=== PATIENT | male | born 1965 | race Hispanic/Latino ===

== ENCOUNTER 2017-03-10 20:04 | Emergency (ER) | payer SELFPAY ==
[2017-03-10 20:52] VITALS: RESP 20; TEMP 99.4; BMI 29.5
--- NOTE | 2017-03-10 21:01 | ED PDOC ---
Arrival/HPI - General Chief Complaint: Substance Abuse Time Seen by Provider: 03/10/17 20:19 Historian: Patient - History of Present Illness Narrative History of Present Illness (Text): 03/10/17 21:01 Freedom Pandey is a 52 year old male, whose past medical history includes substance abuse, IVDA, and hepatitis C, who presents to the emergency department for substance abuse. 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 Patient states he has a history of recreational drug use and reports he feels completely fine. Patient denies any heroine use today. The patient denies any fever, chills, chest pain, shortness of breath, abdominal pain, nausea, vomiting, diarrhea, urinary symptoms, back pain, neck pain, headache, dizziness, or any other complaints. Time/Duration: Prior to Arrival Activities at Onset: Rest, Light Modifying Factors (Text): none Context: Walking, Street Associated Symptoms (Text): none Past Medical History - Provider Review Nursing Documentation Reviewed: Yes - Infectious Disease Hx of Infectious Diseases: None - Cardiac Hx Hypertension: No - Pulmonary Hx Respiratory Disorders: No Hx Tuberculosis: No - Neurological Hx Seizures: No - HEENT Hx HEENT Disorder: No - Renal Hx Renal Disorder: No - Endocrine/Metabolic Hx Endocrine Disorders: No - Hematological/Oncological Hx Blood Disorders: No - Integumentary Hx Dermatological Disorder: No Other/Comment: left arm with dressing red streak noted and warm to touch swollwn and elevated on pillow. Abcess of left arm eight years ago - Musculoskeletal/Rheumatological Hx Musculoskeletal Disorders: No Hx Falls: No - Gastrointestinal Hx Gastrointestinal Disorders: No - Genitourinary/Gynecological Hx Sexually Transmitted Diseases: No - Psychiatric Hx Depression: Yes Hx Substance Use: Yes (cocaine, heroin) - Anesthesia Hx Anesthesia: No Hx Anesthesia Reactions: No Hx Malignant Hyperthermia: No Family/Social History - Physician Review Nursing Documentation Reviewed: Yes Family/Social History: No Known Family HX Smoking Status: Heavy Smoker > 10 Cigarettes Daily Hx Alcohol Use: Yes Frequency of alcohol use: Socially Hx Substance Use: Yes (cocaine, heroin) Allergies/Home Meds Allergies/Adverse Reactions: Allergies lactose Allergy (Verified 08/22/16 10:17) Home Medications: Home Meds Medication Instructions Recorded Confirmed No Known Home Med 03/10/17 03/10/17 Review of Systems - Physician Review All systems were reviewed & negative as marked: Yes - Review of Systems Constitutional: Normal. absent: Fevers Eyes: Normal ENT: Normal Respiratory: Normal. absent: SOB, Cough Cardiovascular: Normal. absent: Chest Pain Gastrointestinal: Normal. absent: Abdominal Pain, Diarrhea, Nausea, Vomiting Genitourinary Male: Normal. absent: Dysuria, Frequency, Hematuria, Urinary Output Changes Musculoskeletal: Normal. absent: Back Pain, Neck Pain Skin: Normal. absent: Rash Neurological: Normal. absent: Headache, Dizziness Endocrine: Normal Hemo/Lymphatic: Normal Psychiatric: Normal. absent: Depression Physical Exam Vital Signs Reviewed: Yes Vital Signs Temp Pulse Resp BP Pulse Ox 03/10/17 21:27 97 H 20 129/76 97 03/10/17 20:08 99.4 F 104 H 20 130/79 91 L Temperature: Afebrile Blood Pressure: Normal Pulse: Regular Respiratory Rate: Normal Appearance: Positive for: Well-Appearing, Non-Toxic, Comfortable Pain Distress: None Mental Status: Positive for: Alert and Oriented X 3 - Systems Exam Head: Present: Atraumatic, Normocephalic Pupils: Present: PERRL Extroacular Muscles: Present: EOMI Conjunctiva: Present: Normal Mouth: Present: Moist Mucous Membranes Neck: Present: Normal Range of Motion Respiratory/Chest: Present: Clear to Auscultation, Good Air Exchange. No: Respiratory Distress, Accessory Muscle Use Cardiovascular: Present: Regular Rate and Rhythm, Normal S1, S2. No: Murmurs Abdomen: Present: Normal Bowel Sounds. No: Tenderness, Distention, Peritoneal Signs Back: Present: Normal Inspection Upper Extremity: Present: Normal Inspection. No: Cyanosis, Edema Lower Extremity: Present: Normal Inspection. No: Edema Neurological: Present: GCS=15, CN II-XII Intact, Speech Normal Skin: Present: Warm, Dry, Normal Color. No: Rashes Psychiatric: Present: Alert, Oriented x 3, Normal Insight, Normal Concentration Medical Decision Making ED Course and Treatment: 03/10/17 21:01 Impression: 52 year old male presents for substance abuse, denies any somatic complaints. Differential Diagnosis included but are not limited to: cocaine abuse Plan: -- Reassess and disposition Progress Notes: Patient is awake, alert, and oriented x3. Pt in no acute distress. Patient is stable for discharge. Patient was instructed to follow up with physician/clinic in 1-2 days or return if any new concerning symptoms arise. - Scribe Statement The provider has reviewed the documentation as recorded by the Kallie Sol Provider Attestation: All medical record entries made by the Kallie were at my direction and personally dictated by me. I have reviewed the chart and agree that the record accurately reflects my personal performance of the history, physical exam, medical decision making, and the department course for this patient. I have also personally directed, reviewed, and agree with the discharge instructions and disposition. Disposition/Present on Arrival - Present on Arrival Any Indicators Present on Arrival: No History of DVT/PE: No History of Uncontrolled Diabetes: No Urinary Catheter: No History of Decub. Ulcer: No History Surgical Site Infection Following: None - Disposition Have Diagnosis and Disposition been Completed?: Yes Diagnosis: Cocaine abuse Disposition: HOME/ ROUTINE Disposition Time: 21:18 Patient Plan: Discharge Condition: GOOD Additional Instructions: Avoid drug use/follow up with your doctor this week [facility]errals: [facility] [[facility] - Follow up with primary
[2017-03-10 21:27] VITALS: BP 129/76; PULSE 97; O2SAT 97
== END 2017-03-10 21:55 | disposition home or self-care (01) ==
LOC: ED 20:04
DX: F14.10 Cocaine abuse, uncomplicated (principal)

== ENCOUNTER 2017-03-17 22:49 | Emergency (ER) | payer SELFPAY ==
[2017-03-17 22:56] VITALS: BMI 30.2
[2017-03-17 23:00] VITALS: TEMP 98.3
[2017-03-17] MEDS ORDERED: DALBAVANCIN HCL 1,500 MG in Dextrose 5% In Water 250 ML IV ONE (23:35)
--- NOTE | 2017-03-17 23:43 | ED PDOC ---
Arrival/HPI - General Chief Complaint: Abnormal Skin Integrity Time Seen by Provider: 03/17/17 22:51 Historian: Patient - History of Present Illness Narrative History of Present Illness (Text): 03/17/17 23:38 This 52 yo male pmh drug abuse, presents to this ED c/o right forearm infection x 7 days. Patient stated he accidently puncture his right forearm with a metal bar. Denies fever, or other complains. Time/Duration: > week Context: Home Past Medical History - Provider Review Nursing Documentation Reviewed: Yes - Infectious Disease Hx of Infectious Diseases: None - Cardiac Hx Hypertension: No - Pulmonary Hx Respiratory Disorders: No Hx Tuberculosis: No - Neurological Hx Seizures: No - HEENT Hx HEENT Disorder: No - Renal Hx Renal Disorder: No - Endocrine/Metabolic Hx Endocrine Disorders: No - Hematological/Oncological Hx Blood Disorders: No - Integumentary Hx Dermatological Disorder: No Other/Comment: left arm with dressing red streak noted and warm to touch swollwn and elevated on pillow. Abcess of left arm eight years ago - Musculoskeletal/Rheumatological Hx Musculoskeletal Disorders: No Hx Falls: No - Gastrointestinal Hx Gastrointestinal Disorders: No - Genitourinary/Gynecological Hx Sexually Transmitted Diseases: No - Psychiatric Hx Depression: Yes Hx Substance Use: Yes (cocaine, heroin) - Anesthesia Hx Anesthesia: No Hx Anesthesia Reactions: No Hx Malignant Hyperthermia: No Family/Social History - Physician Review Nursing Documentation Reviewed: Yes Family/Social History: No Known Family HX Smoking Status: Heavy Smoker > 10 Cigarettes Daily Hx Alcohol Use: Yes Hx Substance Use: Yes (cocaine, heroin) Allergies/Home Meds Allergies/Adverse Reactions: Allergies lactose Allergy (Verified 08/22/16 10:17) Home Medications: Home Meds Medication Instructions Recorded Confirmed No Known Home Med 03/10/17 03/17/17 Review of Systems - Review of Systems Constitutional: Normal. absent: Fatigue, Weight Change, Fevers Eyes: Normal ENT: Normal Respiratory: Normal Cardiovascular: Normal Gastrointestinal: Normal Genitourinary Male: Normal Musculoskeletal: Other (See skin) Skin: Cellulitis (+ right forearm) Neurological: Normal Endocrine: Normal, Polyuria ( cellulitis , apprx. 5 cm. no abscess) Hemo/Lymphatic: Normal Psychiatric: Normal Physical Exam Vital Signs Temp Pulse Resp BP Pulse Ox 03/18/17 01:54 75 16 128/85 96 03/17/17 22:59 98.3 F 85 18 135/77 94 L Temperature: Afebrile Blood Pressure: Normal Pulse: Regular Respiratory Rate: Normal Appearance: Positive for: Well-Appearing, Non-Toxic, Comfortable Pain Distress: None Mental Status: Positive for: Alert and Oriented X 3 - Systems Exam Head: Present: Atraumatic, Normocephalic Pupils: Present: PERRL Extroacular Muscles: Present: EOMI Conjunctiva: Present: Normal Mouth: Present: Moist Mucous Membranes Neck: Present: Normal Range of Motion Respiratory/Chest: Present: Clear to Auscultation, Good Air Exchange. No: Respiratory Distress, Accessory Muscle Use Cardiovascular: Present: Regular Rate and Rhythm, Normal S1, S2. No: Murmurs Abdomen: Present: Normal Bowel Sounds. No: Tenderness, Distention, Peritoneal Signs Back: Present: Normal Inspection Upper Extremity: Present: Normal ROM, NORMAL PULSES, Capillary Refill < 2s, Other (+ 5 cm cellulitis, no abscess). No: Cyanosis, Edema Lower Extremity: Present: Normal Inspection. No: Edema Neurological: Present: GCS=15, CN II-XII Intact, Speech Normal Skin: Present: Warm, Dry, Normal Color. No: Rashes Psychiatric: Present: Alert, Oriented x 3, Normal Insight, Normal Concentration Medical Decision Making ED Course and Treatment: 03/18/17 01:20 Re-evaluation. Patient feels better. Discussed results and plan with patient who expresses understanding. All questions answered and there is agreement with the plan to discharge home with instructions. Patient stable for discharge. Return if symptoms persist or worsen. Re-evaluation Time: 01:20 Reassessment Condition: Re-examined - RAD Interpretation Radiology Orders: 03/17/17 23:36 FOREARM RIGHT [RAD] Stat - Medication Orders Current Medication Orders: Discontinued Medications DALBAVANCIN HCL 1,500 mg/ (Dextrose) 250 mls @ 500 mls/hr IV ONCE ONE Stop: 03/18/17 00:04 Last Admin: 03/18/17 00:31 Dose: 500 mls/hr Disposition/Present on Arrival - Present on Arrival Any Indicators Present on Arrival: No History of DVT/PE: No History of Uncontrolled Diabetes: No Urinary Catheter: No History of Decub. Ulcer: No History Surgical Site Infection Following: None - Disposition Have Diagnosis and Disposition been Completed?: Yes Diagnosis: Cellulitis Disposition: HOME/ ROUTINE Disposition Time: 01:21 Patient Plan: Discharge Condition: GOOD Discharge Instructions (ExitCare): Cellulitis (ED) Additional Instructions: Call private doctor for follow up visit in 1-2 days. return to emergency if infection worsen. Clean wound with soap and water daily. Referrals: [facility] [Outside] - Follow up with primary [facility] [Outside] - Follow up with primary Forms: WORK NOTE
[2017-03-18 01:56] VITALS: BP 128/85; PULSE 75; RESP 16; O2SAT 96
--- NOTE | 2017-03-18 14:36 | RAD ---
PROCEDURE: Radiographs of the Right Forearm HISTORY: pain r/o FB COMPARISON: None available. TECHNIQUE: Frontal and lateral views obtained. FINDINGS: BONES: No fracture or destructive lesion. JOINT SPACES: Unremarkable. OTHER FINDINGS: No radiopaque foreign body identified. IMPRESSION: Unremarkable radiographs of the right forearm. No radiopaque foreign body identified.
== END 2017-03-18 01:57 | disposition home or self-care (01) ==
LOC: ED 22:49
DX: L03.113 Cellulitis of right upper limb (principal)
CPT/HCPCS: 73090; 99283; J7060

== ENCOUNTER 2017-05-15 23:15 | Observation (INO) | payer SELFPAY ==
[2017-05-15 23:15] VITALS: BMI 30.2
--- NOTE | 2017-05-16 00:51 | ED PDOC ---
Arrival/HPI - General Chief Complaint: Alcohol Ingestion Time Seen by Provider: 05/16/17 00:38 Historian: Patient, EMS - History of Present Illness Narrative History of Present Illness (Text): 05/16/17 00:35 Freedom Pandey is a 52 year old male, whose past medical history includes alcohol abuse, substance abuse, IVDA, and hepatitis C, who presents to the emergency department brought in by EMS for public intoxication. EMS reports patient was found sleeping outside of a bar intoxicated. Patient admits to drinking alcohol tonight and states he currently feels fine. Patient denies any suicidal ideation, homicidal ideation, fever, chills, chest pain, shortness of breath, abdominal pain, nausea, vomiting, diarrhea, urinary symptoms, back pain , neck pain, headache, dizziness, or any other complaints. Time/Duration: Other (tonight) Symptom Onset: Gradual Symptom Course: Unchanged Activities at Onset: Light Context: Street Past Medical History - Provider Review Nursing Documentation Reviewed: Yes - Infectious Disease Hx of Infectious Diseases: None - Cardiac Hx Cardiac Disorders: No Hx Hypertension: No - Pulmonary Hx Respiratory Disorders: No Hx Tuberculosis: No - Neurological Hx Neurological Disorder: No Hx Seizures: No - HEENT Hx HEENT Disorder: No - Renal Hx Renal Disorder: No - Endocrine/Metabolic Hx Endocrine Disorders: No - Hematological/Oncological Hx Blood Disorders: Yes Hx Hepatitis C: Yes - Integumentary Hx Dermatological Disorder: No Other/Comment: left arm with dressing red streak noted and warm to touch swollwn and elevated on pillow. Abcess of left arm eight years ago - Musculoskeletal/Rheumatological Hx Musculoskeletal Disorders: No Hx Falls: No - Gastrointestinal Hx Gastrointestinal Disorders: No - Genitourinary/Gynecological Hx Genitourinary Disorders: No Hx Sexually Transmitted Diseases: No - Psychiatric Hx Psychophysiologic Disorder: Yes Hx Depression: Yes Hx Substance Use: Yes (cocaine, heroin) - Anesthesia Hx Anesthesia: No Hx Anesthesia Reactions: No Hx Malignant Hyperthermia: No Family/Social History - Physician Review Nursing Documentation Reviewed: Yes Family/Social History: Unknown Family HX Smoking Status: Heavy Smoker > 10 Cigarettes Daily Hx Alcohol Use: Yes Frequency of alcohol use: Daily Hx Substance Use: Yes (cocaine, heroin) Allergies/Home Meds Allergies/Adverse Reactions: Allergies lactose Allergy (Verified 08/22/16 10:17) Home Medications: Home Meds Medication Instructions Recorded Confirmed No Known Home Med 03/10/17 05/15/17 Review of Systems - Physician Review All systems were reviewed & negative as marked: Yes - Review of Systems Constitutional: Normal. absent: Fevers Eyes: Normal ENT: Normal Respiratory: Normal. absent: SOB, Cough Cardiovascular: Normal. absent: Chest Pain Gastrointestinal: Normal. absent: Abdominal Pain, Diarrhea, Nausea, Vomiting Genitourinary Male: Normal. absent: Dysuria, Frequency, Hematuria, Urinary Output Changes Musculoskeletal: Normal. absent: Back Pain, Neck Pain Skin: Normal. absent: Rash Neurological: Normal. absent: Headache, Dizziness Endocrine: Normal Hemo/Lymphatic: Normal Psychiatric: Other (+alcohol intoxication) Physical Exam Vital Signs Reviewed: Yes Vital Signs Temp Pulse Resp BP Pulse Ox 05/16/17 05:15 58 L 18 128/66 98 05/16/17 00:57 98.0 F 65 16 148/61 95 05/15/17 23:23 98.7 F 79 17 131/64 95 Temperature: Afebrile Blood Pressure: Normal Pulse: Regular Respiratory Rate: Normal Appearance: Positive for: Well-Appearing, Non-Toxic, Comfortable Pain Distress: None Mental Status: Positive for: Alert and Oriented X 3 - Systems Exam Head: Present: Atraumatic, Normocephalic Pupils: Present: PERRL Extroacular Muscles: Present: EOMI Conjunctiva: Present: Normal Mouth: Present: Moist Mucous Membranes Neck: Present: Normal Range of Motion Respiratory/Chest: Present: Clear to Auscultation, Good Air Exchange. No: Respiratory Distress, Accessory Muscle Use Cardiovascular: Present: Regular Rate and Rhythm, Normal S1, S2. No: Murmurs Abdomen: Present: Normal Bowel Sounds. No: Tenderness, Distention, Peritoneal Signs Back: Present: Normal Inspection Upper Extremity: Present: Normal Inspection. No: Cyanosis, Edema Lower Extremity: Present: Normal Inspection. No: Edema Neurological: Present: GCS=15, CN II-XII Intact, Speech Normal Skin: Present: Warm, Dry, Normal Color. No: Rashes Psychiatric: Present: Alert, Oriented x 3, Normal Insight, Normal Concentration Medical Decision Making ED Course and Treatment: 05/16/17 00:35 Impression: 52 year old male brought in for alcohol intoxication. Differential Diagnosis included but are not limited to: alcohol intoxication Plan: - Reassess and disposition ED OBSERVATION Discharge: Yes Date of observation admission: 05/16/17 Time of observation admission: 00:40 - Observation admission statement Patient is being placed in observation because:: alcohol intoxication - Goals of Observation Goals of observation are:: sobriety, observe for signs of withdrawal - Progress Note Progress Note: 05/16/17 00:40 Pt brought in for public intoxication. Pt in no acute distress, denies any complaints. Will observe pending sobriety. 05/16/17 02:35 Pt resting comfortably, no new complaints. 05/16/17 04:30 Pt sleeping currently, no acute distress. 05/16/17 06:10 Pt awake, alert, ambulating without difficulty. Pt stable for d/c. - Scribe Statement The provider has reviewed the documentation as recorded by the Kallie Sol Provider Scribe Attestation: All medical record entries made by the Scribe were at my direction and personally dictated by me. I have reviewed the chart and agree that the record accurately reflects my personal performance of the history, physical exam, medical decision making, and the department course for this patient. I have also personally directed, reviewed, and agree with the discharge instructions and disposition. Disposition/Present on Arrival - Present on Arrival Any Indicators Present on Arrival: No History of DVT/PE: No History of Uncontrolled Diabetes: No Urinary Catheter: No History of Decub. Ulcer: No History Surgical Site Infection Following: None - Disposition Have Diagnosis and Disposition been Completed?: Yes Diagnosis: Alcohol intoxication Disposition: HOME/ ROUTINE Disposition Time: 06:24 Patient Plan: Discharge Condition: STABLE
[2017-05-16 05:19] VITALS: RESP 18; O2SAT 98
[2017-05-16 06:32] VITALS: BP 130/74; PULSE 62; TEMP 97.8
== END 2017-05-16 06:23 | disposition home or self-care (01) ==
LOC: ED 23:15 → EROBSV 05-16 00:40
PROVIDERS: ADMIT Emergency Medicine; ATTEND Emergency Medicine
DX: F10.129 Alcohol abuse with intoxication, unspecified (principal)
CPT/HCPCS: 99284; G0378

== ENCOUNTER 2017-09-19 04:49 | Emergency (ER) | payer SELFPAY ==
[2017-09-19 04:50] VITALS: BMI 30.2
[2017-09-19] MEDS ORDERED: Naloxone 0.4 mg/ml Inj (Adult) IM STA (05:07)
--- NOTE | 2017-09-19 05:11 | ED PDOC ---
Arrival/HPI - General Chief Complaint: Substance Abuse Time Seen by Provider: 09/19/17 05:01 Historian: Patient - History of Present Illness Narrative History of Present Illness (Text): 09/19/17 05:08 Freedom Pandey is a 52 year old male, whose past medical history includes substance abuse, who presented to the Emergency department, ambulatory, via BLS for further evaluation/substance abuse. Patient has a history of heroin abuse and admits to snorting 2 bags of heroin tonight. Patient was found outdoors, drowsy and attempting to go back home. Patient was subsequently brought in for further evaluation. Patient denies any alcohol level, suicidal ideation, homicidal ideation, fever, chills, chest pain, shortness of breath, nausea, vomiting, headache, dizziness, or any other complaints. Time/Duration: Other (tonight) Symptom Onset: Gradual Symptom Course: Unchanged Activities at Onset: Light Context: Home Past Medical History - Provider Review Nursing Documentation Reviewed: Yes - Infectious Disease Hx of Infectious Diseases: None - Cardiac Hx Hypertension: No - Pulmonary Hx Tuberculosis: No - Neurological Hx Seizures: No - HEENT Hx HEENT Disorder: No - Renal Hx Renal Disorder: No - Endocrine/Metabolic Hx Endocrine Disorders: No - Hematological/Oncological Hx Cancer: No - Integumentary Hx Dermatological Disorder: No Other/Comment: left arm with dressing red streak noted and warm to touch swollwn and elevated on pillow. Abcess of left arm eight years ago - Musculoskeletal/Rheumatological Hx Musculoskeletal Disorders: No Hx Falls: No - Gastrointestinal Hx Gastrointestinal Disorders: No - Genitourinary/Gynecological Hx Sexually Transmitted Diseases: No - Psychiatric Hx Depression: Yes Hx Substance Use: Yes - Anesthesia Hx Anesthesia: No Hx Anesthesia Reactions: No Hx Malignant Hyperthermia: No Family/Social History - Physician Review Nursing Documentation Reviewed: Yes Family/Social History: Unknown Family HX Smoking Status: Heavy Smoker > 10 Cigarettes Daily Hx Alcohol Use: No Hx Substance Use: Yes Allergies/Home Meds Allergies/Adverse Reactions: Allergies lactose Allergy (Verified 09/19/17 06:14) DIARRHEA Review of Systems - Physician Review All systems were reviewed & negative as marked: Yes - Review of Systems Constitutional: Normal. absent: Fevers Eyes: Normal ENT: Normal Respiratory: Normal. absent: SOB, Cough Cardiovascular: Normal. absent: Chest Pain Gastrointestinal: Normal. absent: Abdominal Pain, Diarrhea, Nausea, Vomiting Genitourinary Male: Normal. absent: Dysuria, Frequency, Hematuria, Urinary Output Changes Musculoskeletal: Normal. absent: Back Pain, Neck Pain Skin: Normal. absent: Rash Neurological: Normal. absent: Headache, Dizziness Endocrine: Normal Hemo/Lymphatic: Normal Psychiatric: Other (+substance abuse). absent: Suicidal Ideation Physical Exam Vital Signs Reviewed: Yes Vital Signs Temp Pulse Resp BP Pulse Ox 09/19/17 05:01 97.6 F 68 16 148/77 95 Temperature: Afebrile Blood Pressure: Normal Pulse: Regular Respiratory Rate: Normal Appearance: Positive for: Well-Appearing, Non-Toxic, Comfortable Pain Distress: None Mental Status: Positive for: other (Drowsy, awake, oriented x3) - Systems Exam Head: Present: Atraumatic, Normocephalic Pupils: Present: PERRL Extroacular Muscles: Present: EOMI Conjunctiva: Present: Normal Mouth: Present: Moist Mucous Membranes Neck: Present: Normal Range of Motion Respiratory/Chest: Present: Clear to Auscultation, Good Air Exchange. No: Respiratory Distress, Accessory Muscle Use Cardiovascular: Present: Regular Rate and Rhythm, Normal S1, S2. No: Murmurs Abdomen: Present: Normal Bowel Sounds. No: Tenderness, Distention, Peritoneal Signs Back: Present: Normal Inspection Upper Extremity: Present: Normal Inspection. No: Cyanosis, Edema Lower Extremity: Present: Normal Inspection. No: Edema Neurological: Present: GCS=15, CN II-XII Intact, Speech Normal Skin: Present: Warm, Dry, Normal Color. No: Rashes Psychiatric: Present: Oriented x 3, Other (Drowsy, awake) Medical Decision Making ED Course and Treatment: 09/19/17 05:08 Impression: 52 year old male brought in for substance abuse, admits to using 2 bags of heroin. Plan: -- EKG -- Labs, cardiac enzymes, alcohol level -- Urine drug screen -- Narcan -- Reassess and disposition Progress Notes: Reviewed EKG, sinus bradycardia at 57 bpm[address] Non-specific ST/T wave changes. 09/19/17 07:10 Pt. is awake and alert in no acute distress. - Lab Interpretations Lab Results: 09/19/17 05:42 09/19/17 05:42 Lab Results 09/19/17 06:41: Urine Opiates Screen Pending, Urine Methadone Screen Negative, Ur Barbiturates Screen Negative, Ur Phencyclidine Scrn Pending, Ur Amphetamines Screen Negative, U Benzodiazepines Scrn Pending, U Oth Cocaine Metabols Pending , U Cannabinoids Screen Negative 09/19/17 05:42: Alcohol, Quantitative < 10 09/19/17 05:42: WBC 8.4, RBC 4.59, Hgb 13.5 L, Hct 40.7 L, MCV 88.7, MCH 29.4, MCHC 33.2, RDW 13.2, Plt Count 228, MPV 10.7 09/19/17 05:42: Sodium 139, Potassium 4.3, Chloride 102, Carbon Dioxide 31, Anion Gap 11, BUN 13, Creatinine 0.9, Est GFR ( Amer) > 60, Est GFR (Non- Af Amer) > 60, Random Glucose 93, Calcium 9.5, Total Bilirubin 0.5, AST 56, ALT 62 H, Alkaline Phosphatase 57, Total Protein 7.3, Albumin 3.9, Globulin 3.4, Albumin/Globulin Ratio 1.1 - EKG Interpretation Interpreted by ED Physician: Yes Type: 12 lead EKG - Medication Orders Current Medication Orders: Discontinued Medications Sodium Chloride (Sodium Chloride 0.9%) 1,000 mls @ 999 mls/hr IV .Q1H1M STA Stop: 09/19/17 06:52 Last Admin: 09/19/17 05:58 Dose: 999 mls/hr eMAR Start Stop Document 09/19/17 05:58 ND (Rec: 09/19/17 05:59 ND [id number]) Intravenous Solution Start Date 09/19/17 Start Time 05:55 End Date 09/19/17 End time 06:55 Total Infusion Time 60 Naloxone HCl (Narcan) 0.4 mg IM STAT STA Stop: 09/19/17 05:08 Last Admin: 09/19/17 05:13 Dose: 0.4 mg IM Administration Charges Document 09/19/17 05:13 SC (Rec: 09/19/17 05:13 SC [id number]) Injection Site MAR Injection Site Left Deltoid Charges for Administration # of IM Administrations 1 Naloxone HCl (Narcan) 0.4 mg IVP STAT STA Stop: 09/19/17 05:53 Last Admin: 09/19/17 05:58 Dose: 0.4 mg IVP Administration Document 09/19/17 05:58 ND (Rec: 09/19/17 05:58 ND [id number]) Charges for Administration # of IVP Administrations 1 - Scribe Statement The provider has reviewed the documentation as recorded by the Kallie Sol Provider Scribe Attestation: All medical record entries made by the Scribe were at my direction and personally dictated by me. I have reviewed the chart and agree that the record accurately reflects my personal performance of the history, physical exam, medical decision making, and the department course for this patient. I have also personally directed, reviewed, and agree with the discharge instructions and disposition. Disposition/Present on Arrival - Present on Arrival Any Indicators Present on Arrival: No History of DVT/PE: No History of Uncontrolled Diabetes: No Urinary Catheter: No History of Decub. Ulcer: No History Surgical Site Infection Following: None - Disposition Have Diagnosis and Disposition been Completed?: Yes Diagnosis: Heroin abuse Disposition: HOME/ ROUTINE Disposition Time: 07:11 Patient Plan: Discharge Condition: STABLE Discharge Instructions (ExitCare): Narcotic Abuse (ED) Referrals: PCP,NO [Primary Care Provider] - Follow up with primary [facility] [Outside] - Follow up with primary Forms: [employer] ([place]i)
[2017-09-19] MEDS ORDERED: Naloxone 0.4 mg/ml Inj (Adult) ONE (05:12)
[2017-09-19] MEDS ORDERED: Naloxone 0.4 mg/ml Inj (Adult) IVP STA (05:52)
[2017-09-19] MEDS ORDERED: Sodium Chloride 0.9% 1,000 ML IV STA (05:52)
[2017-09-19 06:01] LABS: HEMATOCRIT 40.7 % (42.0-52.0); MEAN CELL VOLUME 88.7 fl (80.0-105.0); MEAN CORPUSCULAR HEMOGLOBIN 29.4 pg (25.0-35.0); MEAN CORPUSCULAR HGB CONC 33.2 g/dl (31.0-37.0); MEAN PLATELET VOLUME 10.7 fl (7.0-11.0); RED CELL DISTRIBUTION WIDTH 13.2 % (11.5-14.5); WHITE BLOOD COUNT 8.4 10^3/ul (4.5-11.0)
[2017-09-19 06:12] LABS: ALB/GLOB RATIO 1.1 (1.1-1.8); ALKALINE PHOSPHATASE 57 U/L (38-126); ALT/SGPT 62 U/L (7-56); AST/SGOT 56 U/L (17-59); BILIRUBIN,TOTAL 0.5 mg/dL (0.2-1.3); BLOOD UREA NITROGEN 13 mg/dL (7-21); CALCIUM 9.5 mg/dL (8.4-10.5); CARBON DIOXIDE 31 mmol/L (21-33); CHLORIDE 102 mmol/L (98-107); GFR AFRICAN-AMERICAN > 60; GLUCOSE,RANDOM 93 mg/dL (70-110); POTASSIUM 4.3 mmol/L (3.6-5.0); SODIUM 139 mmol/L (132-148); TOTAL PROTEIN 7.3 g/dL (5.8-8.3)
[2017-09-19 09:38] VITALS: BP 107/77; PULSE 60; RESP 19; TEMP 98; O2SAT 96
--- NOTE | 2017-09-19 10:34 | CARD ---
APPROVED REPORT EKG Measurement Heart [id number] [place] [id number] <Conclusion> Sinus bradycardia Otherwise normal No change except the rate is slower
== END 2017-09-19 09:40 | disposition home or self-care (01) ==
LOC: ED 04:49
DX: F11.10 Opioid abuse, uncomplicated (principal)
CPT/HCPCS: 80053; 85027; 93005; 96361; 96372; 96374; 99284; G0480; J2310; J7040

== ENCOUNTER 2017-10-20 19:20 | Emergency (ER) | payer MEDICAID, OTHER ==
[2017-10-20 19:21] VITALS: BMI 30.2
[2017-10-20 19:43] VITALS: BP 131/86; PULSE 106; RESP 18; TEMP 98.7; O2SAT 97
--- NOTE | 2017-10-20 20:19 | ED PDOC ---
Arrival/HPI - General Chief Complaint: Medical Clearance Time Seen by Provider: 10/20/17 19:50 Historian: Patient - History of Present Illness Narrative History of Present Illness (Text): you were treated in the ED today for being seen admitted 2 lines of cocaine use and 1 beer and brought by police with option for penitentiary or go to the hospital otherwise without any nausea/vomiting/headache/dizziness/abdomen pain/chest pain /difficulty breathing/numbness/tingling/loss of limb function/pain with urination/thoughts to harm yourself or others or hallucinations. 10/20/17 20:24 Past Medical History - Provider Review Nursing Documentation Reviewed: Yes - Travel History Have you recently traveled outside [place] w/in the past 3 mons?: No - Infectious Disease Hx of Infectious Diseases: None - Cardiac Hx Hypertension: No - Pulmonary Hx Tuberculosis: No - Neurological Hx Seizures: No - HEENT Hx HEENT Disorder: No - Renal Hx Renal Disorder: No - Endocrine/Metabolic Hx Endocrine Disorders: No - Hematological/Oncological Hx Cancer: No - Integumentary Hx Dermatological Disorder: No Other/Comment: left arm with dressing red streak noted and warm to touch swollwn and elevated on pillow. Abcess of left arm eight years ago - Musculoskeletal/Rheumatological Hx Musculoskeletal Disorders: No Hx Falls: No - Gastrointestinal Hx Gastrointestinal Disorders: No - Genitourinary/Gynecological Hx Sexually Transmitted Diseases: No - Psychiatric Hx Depression: Yes Hx Substance Use: Yes - Anesthesia Hx Anesthesia: No Hx Anesthesia Reactions: No Hx Malignant Hyperthermia: No Family/Social History - Physician Review Nursing Documentation Reviewed: Yes Family/Social History: No Known Family HX Smoking Status: Heavy Smoker > 10 Cigarettes Daily Hx Alcohol Use: No Hx Substance Use: Yes Allergies/Home Meds Allergies/Adverse Reactions: Allergies lactose Allergy (Verified 09/19/17 06:14) DIARRHEA Review of Systems - Review of Systems Constitutional: Normal Eyes: Normal ENT: Normal Respiratory: Normal Cardiovascular: Normal Gastrointestinal: Normal Genitourinary Male: Normal Musculoskeletal: Normal Skin: Normal Neurological: Normal Endocrine: Normal Hemo/Lymphatic: Normal Psychiatric: Normal Physical Exam Vital Signs Reviewed: Yes Vital Signs Temp Pulse Resp BP Pulse Ox 10/20/17 19:21 98.7 F 106 H 18 131/86 97 Temperature: Afebrile Blood Pressure: Hypertensive Pulse: Tachycardic Respiratory Rate: Normal Appearance: Positive for: Well-Appearing, Non-Toxic, Comfortable Pain Distress: None Mental Status: Positive for: Alert and Oriented X 3 - Systems Exam Head: Present: Atraumatic, Normocephalic Pupils: Present: PERRL Extroacular Muscles: Present: EOMI Conjunctiva: Present: Normal Ears: Present: Normal Mouth: Present: Moist Mucous Membranes Pharnyx: Present: Normal Nose (External): Present: Atraumatic Nose (Internal): Present: Normal Inspection Neck: Present: Normal Range of Motion Respiratory/Chest: Present: Clear to Auscultation, Good Air Exchange Cardiovascular: Present: Regular Rate and Rhythm Abdomen: No: Tenderness, Distention, Normal Bowel Sounds, Peritoneal Signs, Rebound, Guarding, McBurney's Point Tender, Rovsing's Sign Present, Hernias, Feeding Tubes, Ostomy Tubes, Mass/Organomegaly, Scars, Other Back: Present: Normal Inspection Upper Extremity: Present: Normal Inspection Lower Extremity: Present: Normal Inspection Neurological: Present: GCS=15, CN II-XII Intact, Speech Normal, Motor Func Grossly Intact Skin: Present: Warm, Normal Color Psychiatric: Present: Alert, Oriented x 3, Normal Insight, Normal Concentration. No: Normal Affect, Normal Mood, Anxious, Agitated, Depressed Mood, Suicidal Ideation, Homicidal Ideation, Delusional, Hallucinations, Intoxicated, Lethargic, Other Medical Decision Making ED Course and Treatment: 10/20/17 20:19 you were treated in the ED today for being seen admitted cocaine use and 1 beer and brought by police with option for penitentiary or go to the hospital otherwise without any nausea/vomiting/headache/dizziness/abdomen pain/chest pain/ difficulty breathing/numbness/tingling/loss of limb function/pain with urination /thoughts to harm yourself or others or hallucinations. You were otherwise breathing easily, smiling, good strength/sensation, walking easily, clear lungs , no abdomen tenderness, alert/orient/had good insight, no fever temp 98.7, fast heart rate 106, stable breathing rate 18, excellent oxygen level 97% room air, elevated blood pressure 131/86, ECG sinus tachycardia, observation done in the ED, counselled to stop using cocaine and drugs and alcohol and recommended to stay in the ED for further labs tests and to ensure improvement of heart rate but you refused and cuationed for complications but you stated you are going to walk a few blocks home. 1. Recommend follow-up primary care 1-2 days to review symptoms, referral to detox. 4. If any worsening pain, fever, chills, nausea, vomiting, difficulty breathing, numbness, loss of limb function , pain with urination or any medical condition then return to the ED Reassessment Condition: Improved - EKG Interpretation Interpreted by ED Physician: Yes (sinus tachycardia, flipped t waves avr, avl, v1) Type: 12 lead EKG Disposition/Present on Arrival - Present on Arrival Any Indicators Present on Arrival: No History of DVT/PE: No History of Uncontrolled Diabetes: No Urinary Catheter: No History of Decub. Ulcer: No History Surgical Site Infection Following: None - Disposition Have Diagnosis and Disposition been Completed?: Yes Diagnosis: Cocaine abuse Disposition: AGAINST MEDICAL ADVICE Disposition Time: 20:14 Patient Plan: Discharge Condition: STABLE Additional Instructions: you were treated in the ED today for being seen admitted cocaine use and 1 beer and brought by police with option for penitentiary or go to the hospital otherwise without any nausea/vomiting/headache/dizziness/abdomen pain/chest pain/ difficulty breathing/numbness/tingling/loss of limb function/pain with urination /thoughts to harm yourself or others or hallucinations. You were otherwise breathing easily, smiling, good strength/sensation, walking easily, clear lungs , no abdomen tenderness, alert/orient/had good insight, no fever temp 98.7, fast heart rate 106, stable breathing rate 18, excellent oxygen level 97% room air, elevated blood pressure 131/86, ECG sinus tachycardia, observation done in the ED, counselled to stop using cocaine and drugs and alcohol and recommended to stay in the ED for further labs tests and to ensure improvement of heart rate but you refused and cuationed for complications but you stated you are going to walk a few blocks home. 1. Recommend follow-up primary care 1-2 days to review symptoms, referral to detox. 4. If any worsening pain, fever, chills, nausea, vomiting, difficulty breathing, numbness, loss of limb function , pain with urination or any medical condition then return to the ED. Referrals: PCP,NO [Primary Care Provider] - Follow up with primary
--- NOTE | 2017-10-21 09:39 | CARD ---
APPROVED REPORT EKG Measurement Heart [id number] [place] [id number] <Conclusion> Sinus tachycardia Incomplete right bundle branch block LAD C/W ECG 09/19/17: the rate is faster
== END 2017-10-20 20:23 | disposition left against medical advice (07) ==
LOC: ED 19:20
DX: F14.10 Cocaine abuse, uncomplicated (principal); F17.210 Nicotine dependence, cigarettes, uncomplicated

== ENCOUNTER 2018-01-12 21:40 | Emergency (ER) | payer OTHER ==
[2018-01-12 21:40] VITALS: BMI 30.2
[2018-01-12 21:53] VITALS: TEMP 97.5
--- NOTE | 2018-01-12 21:59 | ED PDOC ---
Arrival/HPI - General Chief Complaint: Alcohol Ingestion Time Seen by Provider: 01/12/18 21:47 - History of Present Illness Narrative History of Present Illness (Text): 52 y/o M c history of alcohol and cocaine abuse BIBEMS with intoxication. Patient is drowsy but easily arousable and states he is in no pain, did drink alcohol today, was found with white powder on his person and is asking to just sleep. Full ROS unobtainable due to patient's drowsiness. Past Medical History - Infectious Disease Hx of Infectious Diseases: None - Cardiac Hx Hypertension: No - Pulmonary Hx Tuberculosis: No - Neurological Hx Seizures: No - HEENT Hx HEENT Disorder: No - Renal Hx Renal Disorder: No - Endocrine/Metabolic Hx Endocrine Disorders: No - Hematological/Oncological Hx Cancer: No - Integumentary Hx Dermatological Disorder: No Other/Comment: left arm with dressing red streak noted and warm to touch swollwn and elevated on pillow. Abcess of left arm eight years ago - Musculoskeletal/Rheumatological Hx Musculoskeletal Disorders: No Hx Falls: No - Gastrointestinal Hx Gastrointestinal Disorders: No - Genitourinary/Gynecological Hx Sexually Transmitted Diseases: No - Psychiatric Hx Depression: Yes Hx Substance Use: Yes - Anesthesia Hx Anesthesia: No Hx Anesthesia Reactions: No Hx Malignant Hyperthermia: No Family/Social History Family/Social History: Unknown Family HX Smoking Status: Heavy Smoker > 10 Cigarettes Daily Hx Alcohol Use: No Hx Substance Use: Yes Allergies/Home Meds Allergies/Adverse Reactions: Allergies lactose Allergy (Verified 09/19/17 06:14) DIARRHEA Home Medications: Home Meds Medication Instructions Recorded Confirmed Unobtainable 01/12/18 01/12/18 Review of Systems - Review of Systems Systems not reviewed;Unavailable: Intoxicated Physical Exam - Physical Exam Narrative Physical Exam (Text): Gen: NAD Head: Atraumatic Eyes: Pupils pinpoint. No nystagmus. ENT: MMM Neck: No midline tenderness. Chest: No tenderness or deformity CV: S1S2 Lungs: CTA b/l. Breathing spontaneously. Abd: Soft, NT Back: No midline tenderness Extremities: No swelling or tenderness. FROM x 4. Skin: No rash Neuro: Alert, no focal deficit Vital Signs Temp Pulse Resp BP Pulse Ox 01/13/18 05:42 66 18 138/86 94 L 01/13/18 04:52 60 18 142/85 94 L 01/13/18 03:51 61 18 140/84 96 01/13/18 02:38 55 L 18 107/79 97 01/13/18 00:59 53 L 18 122/74 95 01/12/18 23:07 57 L 18 138/56 L 95 01/12/18 21:51 97.5 F L 50 L 12 119/69 99 Medical Decision Making ED Course and Treatment: Will observe in ED for sobriety. 01/13/18 06:04 Awake and alert, steady gait, will discharge. Disposition/Present on Arrival - Present on Arrival Any Indicators Present on Arrival: No History of DVT/PE: No History of Uncontrolled Diabetes: No Urinary Catheter: No History of Decub. Ulcer: No History Surgical Site Infection Following: None - Disposition Have Diagnosis and Disposition been Completed?: Yes Diagnosis: Drug abuse Disposition: HOME/ ROUTINE Disposition Time: 06:04 Patient Plan: Discharge Condition: STABLE Discharge Instructions (ExitCare): Drug Abuse and Drug Addiction (DC) Forms: [employer] ([place]an)
[2018-01-12 23:08] VITALS: RESP 18
[2018-01-13 04:53] VITALS: O2SAT 94
[2018-01-13 05:43] VITALS: BP 138/86; PULSE 66
== END 2018-01-13 06:19 | disposition home or self-care (01) ==
LOC: ED 21:40
DX: F19.10 Other psychoactive substance abuse, uncomplicated (principal); F17.210 Nicotine dependence, cigarettes, uncomplicated

== ENCOUNTER 2018-04-20 23:10 | Emergency (ER) | payer OTHER, MEDICAID ==
[2018-04-20 23:11] VITALS: BMI 30.2
--- NOTE | 2018-04-20 23:25 | ED PDOC ---
Arrival/HPI - General Chief Complaint: Substance Abuse Time Seen by Provider: 04/20/18 23:11 Historian: Patient - History of Present Illness Narrative History of Present Illness (Text): 04/20/18 23:22 A 53 year old male, whose past medical history includes cocaine and heroin drug abuse, is brought into the emergency department via EMS for further evaluation after the patient was found poorly responsive on the light rail following apparent heroin drug use. The patient was administered Narcan in the field with positive response. The patient is currently awake and alert with no complaints. Patient admits to drug use. He denies fevers, chills, headache, dizziness, chest pain, shortness of breath, dyspnea on exertion, cough, abdominal pain, nausea, vomiting, diarrhea, back pain, neck pain, urinary/bowel changes, or any other complaint. Time/Duration: Prior to Arrival Symptom Onset: Sudden Symptom Course: Improving Activities at Onset: Rest, Light Context: Other (Light Rail) Past Medical History - Provider Review Nursing Documentation Reviewed: Yes - Infectious Disease Hx of Infectious Diseases: None - Cardiac Hx Hypertension: No - Pulmonary Hx Tuberculosis: No - Neurological Hx Seizures: No - HEENT Hx HEENT Disorder: No - Renal Hx Renal Disorder: No - Endocrine/Metabolic Hx Endocrine Disorders: No - Hematological/Oncological Hx Cancer: No - Integumentary Hx Dermatological Disorder: No Other/Comment: Abcess of left arm eight years ago - Musculoskeletal/Rheumatological Hx Musculoskeletal Disorders: No Hx Falls: No - Gastrointestinal Hx Gastrointestinal Disorders: No - Genitourinary/Gynecological Hx Sexually Transmitted Diseases: No - Psychiatric Hx Depression: Yes Hx Substance Use: Yes - Anesthesia Hx Anesthesia: No Hx Anesthesia Reactions: No Hx Malignant Hyperthermia: No Family/Social History - Physician Review Nursing Documentation Reviewed: Yes Family/Social History: No Known Family HX Smoking Status: Heavy Smoker > 10 Cigarettes Daily Hx Alcohol Use: No Hx Substance Use: Yes Allergies/Home Meds Allergies/Adverse Reactions: Allergies lactose Allergy (Verified 04/20/18 23:18) DIARRHEA Home Medications: Home Meds Medication Instructions Recorded Confirmed No Known Home Med 04/20/18 04/20/18 Review of Systems - Physician Review All systems were reviewed & negative as marked: Yes - Review of Systems Constitutional: absent: Fevers, Night Sweats ENT: absent: Sore Throat Respiratory: absent: SOB, Cough Cardiovascular: absent: Chest Pain, GARCIA Gastrointestinal: absent: Abdominal Pain, Diarrhea, Nausea, Vomiting Genitourinary Male: absent: Urinary Output Changes Musculoskeletal: absent: Back Pain, Neck Pain Neurological: absent: Headache, Dizziness Physical Exam Vital Signs Reviewed: Yes Vital Signs Temp Pulse Resp BP Pulse Ox 04/21/18 01:47 72 16 142/78 94 L 04/20/18 23:12 97.5 F L 74 17 138/79 97 Temperature: Hypothermic Blood Pressure: Normal Pulse: Regular Respiratory Rate: Normal Appearance: Positive for: Well-Appearing, Non-Toxic, Comfortable Pain Distress: None Mental Status: Positive for: Alert and Oriented X 3 (Slightly drowsy. ) - Systems Exam Head: Present: Atraumatic, Normocephalic Pupils: Present: PERRL Extroacular Muscles: Present: EOMI Conjunctiva: Present: Normal Mouth: Present: Moist Mucous Membranes Neck: Present: Normal Range of Motion Respiratory/Chest: Present: Clear to Auscultation, Good Air Exchange. No: Respiratory Distress, Accessory Muscle Use Cardiovascular: Present: Regular Rate and Rhythm, Normal S1, S2. No: Murmurs Abdomen: No: Tenderness, Distention, Peritoneal Signs Back: Present: Normal Inspection Upper Extremity: Present: Normal Inspection. No: Cyanosis, Edema Lower Extremity: Present: Normal Inspection. No: Edema Neurological: Present: GCS=15, CN II-XII Intact, Speech Normal Skin: Present: Warm, Dry, Normal Color. No: Rashes Psychiatric: Present: Alert, Oriented x 3, Normal Insight, Normal Concentration Medical Decision Making ED Course and Treatment: 04/20/18 23:27 Impression: A 53 year old male is brought into the emergency department via EMS for further evaluation after being found poorly responsive s/p apparent drug use. Plan: -- EKG -- Labs -- Reassess and disposition Progress Notes: 04/20/18 23:40 EKG: Ordered, reviewed, and independently interpreted the EKG. Rate : 67 BPM Rhythm : NSR Interpretation : Incomplete RBBB. No acute changes. 04/21/18 06:36 Pt. awake alert with steady gait in ED. - Lab Interpretations Lab Results: 04/20/18 23:42 04/20/18 23:42 Lab Results 04/21/18 05:49: Urine Opiates Screen Pending, Urine Methadone Screen Negative, Ur Barbiturates Screen Negative, Ur Phencyclidine Scrn Negative, Ur Amphetamines Screen Negative, U Benzodiazepines Scrn Pending, U Oth Cocaine Metabols Pending, U Cannabinoids Screen Pending 04/20/18 23:42: WBC 10.6 D, RBC 4.52, Hgb 13.4 L, Hct 39.3 L, MCV 86.9, MCH 29.6, MCHC 34.1, RDW 13.2, Plt Count 222, MPV 10.5 04/20/18 23:42: Alcohol, Quantitative 50 H 04/20/18 23:42: Sodium 141, Potassium 3.5 L, Chloride 101, Carbon Dioxide 25, Anion Gap 18, BUN 14, Creatinine 0.9, Est GFR ( Amer) > 60, Est GFR (Non- Af Amer) > 60, Random Glucose 91, Calcium 8.5, Total Bilirubin 0.2, AST 68 H D, ALT 77 H, Alkaline Phosphatase 52, Total Protein 6.9, Albumin 4.0, Globulin 2.8 , Albumin/Globulin Ratio 1.4 I have reviewed the lab results: Yes - EKG Interpretation Interpreted by ED Physician: Yes Type: 12 lead EKG - Medication Orders Current Medication Orders: Discontinued Medications Sodium Chloride (Sodium Chloride 0.9%) 1,000 mls @ 999 mls/hr IV .Q1H1M STA Stop: 04/21/18 06:19 Last Admin: 04/21/18 05:36 Dose: 999 mls/hr eMAR Start Stop Document 04/21/18 05:36 IT (Rec: 04/21/18 05:36 IT [id number]) Intravenous Solution Start Date 04/21/18 Start Time 05:36 Naloxone HCl (Narcan) 0.4 mg IVP ONCE ONE Stop: 04/21/18 05:23 Last Admin: 04/21/18 05:36 Dose: 0.4 mg IVP Administration Document 04/21/18 05:36 IT (Rec: 04/21/18 05:36 IT [id number]) Charges for Administration # of IVP Administrations 1 - Scribe Statement The provider has reviewed the documentation as recorded by the Jerrodibe Antonina Scott Provider Scribe Attestation: All medical record entries made by the Scribe were at my direction and personally dictated by me. I have reviewed the chart and agree that the record accurately reflects my personal performance of the history, physical exam, medical decision making, and the department course for this patient. I have also personally directed, reviewed, and agree with the discharge instructions and disposition. Disposition/Present on Arrival - Present on Arrival Any Indicators Present on Arrival: No History of DVT/PE: No History of Uncontrolled Diabetes: No Urinary Catheter: No History of Decub. Ulcer: No History Surgical Site Infection Following: None - Disposition Have Diagnosis and Disposition been Completed?: Yes Diagnosis: Drug abuse Disposition: HOME/ ROUTINE Disposition Time: 06:36 Patient Plan: Discharge Condition: GOOD Discharge Instructions (ExitCare): Drug Abuse and Drug Addiction (DC) Referrals: [facility] [Outside] - Follow up with primary Alcoholics Anonymous [Outside] - Follow up with primary Forms: [employer] (Setswana)
[2018-04-21 00:07] LABS: ALB/GLOB RATIO 1.4 (1.1-1.8); ALT/SGPT 77 U/L (7-56); AST/SGOT 68 U/L (17-59); BLOOD UREA NITROGEN 14 mg/dL (7-21); CALCIUM 8.5 mg/dL (8.4-10.5); GFR AFRICAN-AMERICAN > 60; GFR NON-AFRICAN AMERICAN > 60
[2018-04-21 00:11] LABS: HEMOGLOBIN 13.4 g/dL (14.0-18.0); MEAN CELL VOLUME 86.9 fl (80.0-105.0); MEAN CORPUSCULAR HEMOGLOBIN 29.6 pg (25.0-35.0); MEAN CORPUSCULAR HGB CONC 34.1 g/dl (31.0-37.0); MEAN PLATELET VOLUME 10.5 fl (7.0-11.0); RBC 4.52 10^6/uL (3.5-6.1); RED CELL DISTRIBUTION WIDTH 13.2 % (11.5-14.5); WHITE BLOOD COUNT 10.6 10^3/ul (4.5-11.0)
[2018-04-21] MEDS ORDERED: Sodium Chloride 0.9% 1,000 ML IV STA (05:19)
[2018-04-21] MEDS ORDERED: Naloxone 0.4 mg/ml Inj (Adult) IVP ONE (05:22)
[2018-04-21 06:35] LABS: BARBITURATES, UR NEGATIVE (NEGATIVE); PHENCYCLIDINE, UR NEGATIVE (NEGATIVE)
[2018-04-21 06:36] LABS: BENZODIAZEPINES, UR POSITIVE (NEGATIVE); OPIATES, UR POSITIVE (NEGATIVE)
[2018-04-21 06:47] VITALS: BP 135/72; PULSE 68; RESP 18; TEMP 98.2; O2SAT 100
--- NOTE | 2018-04-21 11:51 | CARD ---
APPROVED REPORT EKG Measurement Heart [id number] <Conclusion> Normal sinus rhythm Incomplete right bundle branch block Borderline ECG
== END 2018-04-21 06:46 | disposition home or self-care (01) ==
LOC: ED 23:10
DX: F19.10 Other psychoactive substance abuse, uncomplicated (principal)
CPT/HCPCS: 80053; 80320; 80324; 80345; 80346; 80349; 80353; 80358; 80361; 83992; 85027; 93005; 96374; 99284; J2310; J7030

== ENCOUNTER 2018-05-26 02:37 | Emergency (ER) | payer MEDICAID, OTHER ==
[2018-05-26 02:37] VITALS: BMI 30.2
[2018-05-26 02:48] VITALS: BP 163/74; PULSE 128; RESP 20; TEMP 98.5
[2018-05-26 03:46] VITALS: O2SAT 97
--- NOTE | 2018-05-26 04:09 | ED PDOC ---
Arrival/HPI - General Chief Complaint: Shortness Of Breath Time Seen by Provider: 05/26/18 02:48 - History of Present Illness Narrative History of Present Illness (Text): 53 y/o M c PMHx drug abuse p/w chest discomfort that he states he has felt since he overdosed a month ago and underwent CPR. He denies fever, chills, dyspnea. Pain is worse with movement or palpation. It was much worse for the week after the CPR but since then has just lingered. Past Medical History - Infectious Disease Hx of Infectious Diseases: None - Cardiac Hx Hypertension: No - Pulmonary Hx Tuberculosis: No - Neurological Hx Seizures: No - HEENT Hx HEENT Disorder: No - Renal Hx Renal Disorder: No - Endocrine/Metabolic Hx Endocrine Disorders: No - Hematological/Oncological Hx Cancer: No - Integumentary Hx Dermatological Disorder: No Other/Comment: Abcess of left arm eight years ago - Musculoskeletal/Rheumatological Hx Musculoskeletal Disorders: No Hx Falls: No - Gastrointestinal Hx Gastrointestinal Disorders: No - Genitourinary/Gynecological Hx Sexually Transmitted Diseases: No - Psychiatric Hx Depression: Yes Hx Substance Use: Yes - Anesthesia Hx Anesthesia: No Hx Anesthesia Reactions: No Hx Malignant Hyperthermia: No Family/Social History Family/Social History: No Known Family HX Smoking Status: Heavy Smoker > 10 Cigarettes Daily Hx Alcohol Use: No Hx Substance Use: Yes Allergies/Home Meds Allergies/Adverse Reactions: Allergies lactose Allergy (Verified 05/26/18 02:44) DIARRHEA Home Medications: Home Meds Medication Instructions Recorded Confirmed No Known Home Med 04/20/18 05/26/18 Review of Systems - Physician Review All systems were reviewed & negative as marked: Yes - Review of Systems Respiratory: absent: SOB Gastrointestinal: absent: Vomiting Physical Exam - Physical Exam Narrative Physical Exam (Text): Constitutional: No acute distress. Head: Normocephalic. Atraumatic. Eyes: PERRL. ENT: Moist mucous membranes. Neck: Supple. Cardiovascular: Regular rate. Chest: Reproducible tenderness. Respiratory: Clear to auscultation bilaterally. GI: Soft. Nontender. Nondistended. Back: No CVA tenderness. Musculoskeletal: No tenderness or swelling of extremities. Skin: No rash. Neurologic: Alert, no focal deficit. Vital Signs Temp Pulse Resp BP Pulse Ox 05/26/18 02:44 98.5 F 128 H 20 163/74 H 97 Medical Decision Making ED Course and Treatment: CXR no PTX or pleural effusion or fractures. - RAD Interpretation Radiology Orders: 05/26/18 03:22 CHEST TWO VIEWS (PA/LAT) [RAD] Stat Disposition/Present on Arrival - Present on Arrival Any Indicators Present on Arrival: No History of DVT/PE: No History of Uncontrolled Diabetes: No Urinary Catheter: No History of Decub. Ulcer: No History Surgical Site Infection Following: None - Disposition Have Diagnosis and Disposition been Completed?: Yes Diagnosis: Chest discomfort Disposition: ELOPEMENT - ER ONLY Disposition Time: 04:06 Patient Plan: Discharge Condition: STABLE Discharge Instructions (ExitCare): Costochondritis Referrals: Jorge London MD [Primary Care Provider] - Follow up with primary
--- NOTE | 2018-05-26 10:36 | RAD ---
Date of service: 05/26/2018 HISTORY: anterior chest soreness COMPARISON: No prior. TECHNIQUE: Chest PA and lateral FINDINGS: LUNGS: No active pulmonary disease. PLEURA: No significant pleural effusion identified. No pneumothorax apparent. CARDIOVASCULAR: No radiographic findings to suggest acute or significant cardiovascular disease. OSSEOUS STRUCTURES: No significant abnormalities. VISUALIZED UPPER ABDOMEN: Normal. OTHER FINDINGS: None. IMPRESSION: No active disease. No significant interval change compared to the prior examination(s).
--- NOTE | 2018-05-26 20:33 | CARD ---
APPROVED REPORT Date of service: 05/26/2018 EKG Measurement Heart [id number] MD [id number] <Conclusion> Normal sinus rhythm Septal infarct, age undetermined Abnormal ECG
== END 2018-05-26 04:00 | disposition left against medical advice (07) ==
LOC: ED 02:37
DX: R07.9 Chest pain, unspecified (principal)

== ENCOUNTER 2018-07-28 21:53 | Emergency (ER) | payer OTHER ==
[2018-07-28 21:53] VITALS: BMI 30.2
== END 2018-07-29 01:50 | disposition left against medical advice (07) ==
LOC: ED 21:53
DX: Z02.89 Encounter for other administrative examinations (principal); F19.10 Other psychoactive substance abuse, uncomplicated